=== PATIENT | female | born 1985 | race Hispanic/Latino ===

== ENCOUNTER 2019-04-21 21:37 | Inpatient (IN) ==
[2019-04-21] MEDS ORDERED: LR 500 ML IV ONE (22:10)
[2019-04-21] MEDS ORDERED: REGLAN PO ONE ×2 (22:10)
[2019-04-21] MEDS ORDERED: PEPCID IV PRN ×2 (22:10)
[2019-04-21] MEDS ORDERED: PEPCID PO PRN ×2 (22:10)
[2019-04-21] MEDS ORDERED: STADOL IV PRN ×2 (22:10)
[2019-04-21] MEDS ORDERED: ZOFRAN IV PRN ×2 (22:10)
[2019-04-21] MEDS ORDERED: TYLENOL PO PRN ×2 (22:10)
[2019-04-21] MEDS ORDERED: PEPCID PO ONE ×2 (22:10)
[2019-04-21] MEDS ORDERED: KEFZOL 1 GM/D5W 1 GM/50 ML IVPB IV PRN ×2 (22:10)
--- NOTE | 2019-04-21 22:12 | PROVIDER DOCUMENTATION ---
This chart was entered by Teresa Jones Scribe, acting as scribe for Aubrey Turcios CRNP. 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 water has not broke. 4 contractions in less than 5 min during exam. unsure labor onset time. 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 Does patient report she is ?: Yes (40wks) Quality of Pain: reports: cramping Severity in ED: reports: severe Onset/Duration: reports: unsure Timing: reports: changing over time, getting worse Related Symptoms: reports: uterine contractions, pelvic pain, abdominal pain Leakage of Fluid: none Modifying Factors: improves with: nothing - LMP/ History Menstrual Status: currently : 2 Para: 1 Care: none Contractions/Pelvic Pain: reports: strong, regular Contraction Frequency (every____min): 1.5 Contraction Duration (mins): 0.5 Review of Systems - Adult - REVIEW OF SYSTEMS - ADULT ROS:: pt does not speak haitian, some difficulty obtaining information through language line Constitutional: reports: no symptoms reported Eyes: reports: no symptoms reported Ears, Nose, Mouth & Throat: reports: no symptoms reported Cardiovascular: reports: no symptoms reported Respiratory: reports: no symptoms reported Gastrointestinal: reports: abdominal pain (contractions) Genitourinary: reports: no symptoms reported Musculoskeletal: reports: no symptoms reported Integumentary: reports: no symptoms reported Neurological: reports: no symptoms reported Psychiatric: reports: no symptoms reported Endocrine: reports: no symptoms reported Hematologic/Lymphatic: reports: no symptoms reported Allergic/Immunologic: reports: no symptoms reported All Other Systems: Reviewed and Negative Past History - Adult - PAST MEDICAL HISTORY-ADULT Review of Records: reports: Nursing Assessment Review, Medications Reviewed, Social history reviewed & non-contributory. Major Childhood Illnesses: reports: denies history Cardiovascular: reports: denies history Respiratory: reports: denies history Gastrointestinal: reports: denies history Obstetrical/Gynecological: reports: denies history Genitourinary: reports: denies history Musculoskeletal: reports: denies history Neurological: reports: denies history Endocrine/Immune: reports: denies history Other Conditions: reports: denies history - IMMUNIZATION STATUS Childhood Immunizations: See Nurse Assessment Flu Vaccine: See Nurse Assessment - FAMILY HISTORY Family History: reviewed, not pertinent - SOCIAL HISTORY Living Situation: family Physical Exam-General - PHYSICAL EXAM-ADULT Initial Vital Signs Reviewed: Yes - CONSTITUTIONAL General Appearance: alert, moderate distress, other (active labor, contractions less than 2 min apart, lating 30+seconds each, becoming closer) - EYES Eyes: PERRL/EOMI - HEAD, EARS, NOSE, MOUTH & THROAT HENMT: moist mucous membranes - CARDIOVASCULAR Cardiovascular: regular rate, rhythm - GENITOURINARY Female Genitalia/Pelvic Exam: other (cervix 6cm dilated) - MUSCULOSKELETAL Extremity: normal range of motion, normal gait - SKIN Integumentary: normal color, normal turgor, warm/dry - NEUROLOGIC Neurologic: grossly normal, no motor/sensory deficits Progress - PLAN OF CARE/RESULTS Progress/Plan/Lab Results: Dr Nguyen to bedside to assist. Patient to be transferred to [facility] via EMS at this time. Departure - Departure Date of Disposition Decision: 04/21/19 Time of Disposition Decision: 22:11 DIAGNOSIS: Active labor at term Disposition: [place] [id number] Certified Medical Emergency: Emergent Condition: Stable - Critical Care Note This patient required my direct & personal management of CC.: No Attestation - Physician/ JOHN Attestation Patient care was provided by Advanced Practice Provider:: Yes Advanced Practice Provider:: Aubrey Turcios Advanced Practice Provider documentation review:: The Mid-level provider documentation, treatment plan and medical decision making was reviewed by the physician who agrees with all treatment and medical decision making by the P. The physician spent face to face time with patient:: Yes (Dr Nguyen) Advanced Practice Provider documentation review:: Supervising physician onsite and consulted in the evaluation and care of this patient. The physician did have a face to face encounter with the patient. This chart was documented by the indicated scribe, (Teresa Jones Scribe) and accurately reflects the services I performed and decisions made by me, Aubrey Turcios CRNP, as attested by the provider's signature.
[2019-04-21] MEDS ORDERED: LR 1,000 ML IV SCH ×2 (22:15)
[2019-04-21] MEDS ORDERED: PITOCIN 30 UNITS/NS 30 UNIT/500 ML IV.SOLN IV SCH ×2 (22:15)
[2019-04-21] MEDS ORDERED: SODIUM CHLORIDE 0.9% INJ SCH ×2 (22:15)
[2019-04-21] MEDS ORDERED: AMPICILLIN ONE (22:34)
[2019-04-21 22:44] LABS: BASO# 0.03 X1000 (0.0-0.2); BASO% 0.4 % (0.0-0.8); EOS# 0.14 X1000 (0.0-0.7); EOS% 1.8 % (0.0-10.0); HEMATOCRIT 37.3 % (37.0-47.0); HEMOGLOBIN 12.3 g/dL (12.0-16.0); IMM GRAN# 0.02 X1000 (0.0-0.04); IMM GRAN% 0.3 % (0.0-0.5); LYMPH# 2.19 X1000 (1.2-3.4); LYMPH% 28.8 % (20.5-51.1); MCV 81.8 FL (81-99); MONO# 0.45 X1000 (0.11-0.59); MONO% 5.9 % (1.7-9.3); NEUT# 4.77 X1000 (1.4-6.5); NEUT% 62.8 % (42.2-75.2); PLT 188 X1000 (130-400); RBC 4.56 XMIL (4.2-5.4); RDW 15.1 % (11.5-14.5)
[2019-04-21] MEDS ORDERED: XYLOCAINE-MPF 1% INJ ONE (23:01)
[2019-04-21 23:21] LABS: RAPID HIV PRESUMPTIVE NEGATIVE; RPR NON-REACTIVE (NONREACTIVE); RUBELLA SCREEN IMMUNE (IMMUNE)
[2019-04-21] MEDS ORDERED: PITOCIN 20 UNITS/NS 20 UNITS/1,000 ML IV.SOLN ONE (23:55)
[2019-04-22] MEDS ORDERED: CYTOTEC PO PRN (00:24)
[2019-04-22] MEDS ORDERED: BENADRYL PO PRN (00:24)
[2019-04-22] MEDS ORDERED: AMBIEN PO PRN (00:24)
[2019-04-22] MEDS ORDERED: M-M-R II VACCINE SUBQ ONE (00:24)
[2019-04-22] MEDS ORDERED: XYLOCAINE-MPF 1% INJ PRN (00:24)
[2019-04-22] MEDS ORDERED: PITOCIN IM PRN (00:24)
[2019-04-22] MEDS ORDERED: MINERAL OIL PO PRN (00:24)
[2019-04-22] MEDS ORDERED: BOOSTRIX VACCINE IM ONE (00:24)
[2019-04-22] MEDS ORDERED: PERI MEDS (DERMOPLAST/NUPERCAINAL/TUCKS) MISC PRN (00:24)
[2019-04-22] MEDS ORDERED: HYDROXYZINE IM PRN (00:24)
[2019-04-22] MEDS ORDERED: ATARAX PO PRN (00:24)
[2019-04-22] MEDS ORDERED: BENADRYL IV PRN (00:24)
[2019-04-22] MEDS ORDERED: PITOCIN 30 UNITS/NS 30 UNIT/500 ML IV.SOLN IV SCH (00:30)
[2019-04-22] MEDS ORDERED: PITOCIN 20 UNITS/NS 20 UNITS/1,000 ML IV.SOLN IV SCH (00:30)
--- NOTE | 2019-04-22 04:12 | HISTORY AND PHYSICAL ---
HISTORY OF PRESENT ILLNESS: This patient is a 33-year-old 2, para 1 at approximately term by size who presents to labor and delivery in active labor. She has had no care. PAST MEDICAL HISTORY: She reports a benign past medical history and had a normal spontaneous vaginal delivery for her first baby. No previous surgery No known drug allergies ROS: negative LABORATORY DATA: No lab work was available, and she was a transfer from the local hospital in [facility]. PHYSICAL EXAMINATION: GENERAL: The patient's vital signs are stable. HEART AND LUNGS: Benign. ABDOMEN: Term size. Estimated weight approximately 6.5 pounds. PELVIC EXAM: Her exam was 8 cm. Complete -1. Membranes were not ruptured. ASSESSMENT: Term gestation in active labor. No care. PLAN: To admit.GBS prophylaxis Obtain lab work and a spontaneous vaginal delivery was expected. [facility]ITALBladimir
--- NOTE | 2019-04-22 06:29 | OPERATIVE NOTE ---
PROCEDURE DATE : 04/21/2019 Time of delivery 230 Placenta delivery 232 PROCEDURE: Delivery of living male child, the delivery was spontaneous with 3 vessel cord. The male infant was viable with Apgars of 8 and 9. This was a spontaneous vaginal delivery. Anesthesia for repair was local, 1% lidocaine and placenta was expressed intact. There was a second degree laceration repaired with 2-0 Vicryl. Patient tolerated procedure well ESTIMATED BLOOD LOSS: 200-400 mL. Patient's vital signs were stable Routine care. [facility]
[2019-04-22] MEDS: MOTRIN PO PRN ×2 (12:30→20:32)
[2019-04-22 15:37] LABS: HIV ANTIBODY SCREEN SEE COMMENTS
[2019-04-22] MEDS: PERICOLACE PO SCH (20:32)
[2019-04-23 04:59] LABS: HEMATOCRIT 33.6 % (37.0-47.0); HEMOGLOBIN 10.8 g/dL (12.0-16.0); MCH 26.9 PG (27-31); MCHC 32.1 g/dL (33-37); MCV 83.6 FL (81-99); MPV 11.6 FL (7.4-10.4); RBC 4.02 XMIL (4.2-5.4); RDW 15.4 % (11.5-14.5); WBC 7.85 X1000 (4.8-10.8)
[2019-04-23 07:57] LABS: HEPATITIS B SURFACE ANTIGEN SEE COMMENTS
[2019-04-23] MEDS: MOTRIN PO PRN ×2 (08:21→17:37)
[2019-04-23] MEDS: FERROUS SULFATE PO SCH (08:21)
[2019-04-23 19:36] LABS: UR AMPHETAMINES QUAL NONE DETECTED (NONE DETECT); UR BARBITUATES QUAL NONE DETECTED (NONE DETECT); UR BENZODIAZEPIN QUAL NONE DETECTED (NONE DETECT); UR CANNABINOIDS QUAL NONE DETECTED (NONE DETECT); UR COCAINE QUAL NONE DETECTED (NONE DETECT); UR METHADONE QUAL NONE DETECTED (NONE DETECT); UR OPIATES QUAL NONE DETECTED (NONE DETECT); UR OXYCODONE QUAL NONE DETECTED (NONE DETECT); UR PCP QUAL NONE DETECTED (NONE DETECT)
[2019-04-23] MEDS: PERICOLACE PO SCH (20:23)
[2019-04-24 07:54] VITALS: BP 125/78
[2019-04-24] MEDS: MOTRIN PO PRN (08:33)
[2019-04-24] MEDS: FERROUS SULFATE PO SCH (08:33)
--- NOTE | 2019-04-24 14:33 | DISCHARGE SUMMARY ---
ADMISSION DATE: 04/21/2019 DISCHARGE DATE: 04/24/2019 The patient is a 33-year-old, 2, para 1, who presents to Labor and Delivery approximately term with no care and underwent a normal spontaneous vaginal delivery without difficulty or complication. Please see separate delivery note. Her course was uncomplicated. day #1 she is afebrile with stable vital signs. She is ambulating, voiding, tolerating a regular diet. Bottle feeding. Her hemoglobin is 10.8. On day #2 ambulating, voiding, tolerating regular diet. She is discharged home in stable condition. She is asked to follow up in the office for visit and control in 6 weeks. Contact the office for any difficulties or problems. She is asked to continue pelvic rest x6 weeks and maintain a regular diet. A prescription for Motrin provided. [facility]TD[facility]
== END 2019-04-24 10:50 | disposition home or self-care (01) ==
LOC: P.ED 21:37 → LD 22:08
PROVIDERS: ADMIT Obstetrics & Gynecology; ATTEND Obstetrics & Gynecology